=== PATIENT | male | born 1965 | race Caucasian/White ===

== ENCOUNTER 2016-10-17 19:10 | Observation (INO) | payer OTHER ==
[2016-10-17] MEDS ORDERED: Nitrostat 0.4 MG (ED) SL ONE (19:18)
[2016-10-17] MEDS ORDERED: Zofran 4 MG/2 ML VIAL IV ONE (19:18)
[2016-10-17] MEDS ORDERED: BABY ASPIRIN 81 MG CHEW PO ONE (19:18)
[2016-10-17] MEDS ORDERED: LOPRESSOR 5 MG/5 ML INJECTION IV ONE ×2 (19:18→19:32)
[2016-10-17] MEDS ORDERED: Zofran 4 MG/2 ML VIAL ONE (19:19)
[2016-10-17] MEDS ORDERED: Sodium Chloride 0.9% 1000 ML 1,000 ML ONE (19:19)
[2016-10-17] MEDS ORDERED: NITRO-BID 2% UD PACKETS ONE (19:19)
[2016-10-17] MEDS ORDERED: MORPHINE SULFATE 2 MG INJ IV ONE (19:27)
[2016-10-17 19:30] LABS: BASOPHIL % 0.5 % (0.0-0.4); Eosinophil % 2.2 % (0.00-5.0); Granulocytes % 63.6 % (36.0-66.0); Mean Corpuscular Hemoglobin 31.5 pg (26-32); Mean Platelet Volume 10.3 fl (6-9.5); Monocytes % 5.7 % (0.0-12.0); Platelet Count 207 K/mm3 (150-450); Red Cell Distribution Width 14.1 % (11.5-14.0); White Blood Count 11.7 K/mm3 (4.0-10.5)
[2016-10-17] MEDS ORDERED: Sodium Chloride 0.9% 1000 ML 1,000 ML IV SCH (19:30)
[2016-10-17] MEDS ORDERED: MORPHINE SULFATE 2 MG INJ ONE (19:32)
[2016-10-17 19:41] LABS: INR 1.02 (0.8-3.0); PROTIME 11.5 SECONDS (8.83-12.87)
--- NOTE | 2016-10-17 19:42 | ERPHSYRPT ---
- History of Present Illness Time Seen by Provider: 10/17/16 19:18 Historian: patient Exam Limitations: no limitations Physician History: onsert CP 1 week ago; intermittatnt; worse today since 1 pm; AMI x 3 in past with stents; last one 3 years ago; this simialr; pain 11/26; took asa and ntg; now ; some Nause; no ememsis; radiatews to neck and back; some SOB and sweats; continues to smoke Timing/Duration: today (worse), week(s) (1 onset), intermittent, worse Activities at Onset: activity Quality: pressure Location: central Chest Pain Radiation: neck, back Severity of Pain-Max: severe Severity of Pain-Current: moderate Modifying Factors: Improves With: exertion (aggravates), nitroglycerin (helps), rest (helps), aspirin (helps) Associated Symptoms: nausea, shortness of breath, diaphoresis Prior Chest Pain/Cardiac Workup: angina, cardiac cath, heart attack Nitro Today/Relief: 0.4 mg x 2 Aspirin Treatment Today: 81 mg x 1, provided by ED Allergies/Adverse Reactions: No Known Drug Allergies Allergy (Verified 11/21/15 07:20) Home Medications: Alprazolam 0.5 mg [xanAX 0.5 MG] 0.5 mg PO HS 09/14/12 [History] Nitroglycerin 0.4 mg Tablet [Nitrostat 0.4 MG Tablet] 0.4 mg SL UD [History] Pravastatin Sodium 40 mg PO HS 09/14/12 [History] Clopidogrel Bisulfate 75 mg [PLAVIX 75 MG Tablet] 75 mg PO DAILY 11/05/13 [History] Divalproex Sodium 500 mg PO BID 11/05/13 [History] Lisinopril/Hydrochlorothiazide [Lisinopril-Hctz 10-12.5 mg Tab] 10 mg PO DAILY 11/23/13 [History] Aspirin [Aspir-Low] 81 mg DAILY 11/21/15 [History] Bupropion HCl Xl 150 mg [Wellbutrin XL 150 MG] 150 mg BID 11/21/15 [ History] Levetiracetam [Keppra Xr] 500 mg PO BID 11/21/15 [History] Metoprolol Succinate 25 mg Xl* [Toprol-Xl 25MG Tablets] 25 mg PO DAILY [History] Ranitidine HCl [Zantac] 150 mg PO DAILY 11/21/15 [History] Ranolazine 500 MG [Ranexa 500 MG] 500 mg PO DAILY 11/21/15 [History] Simvastatin [Zocor] 10 mg PO DAILY 11/21/15 [History] Hx Tetanus, Diphtheria Vaccination/Date Given: No (UNKNOWN) Hx Influenza Vaccination/Date Given: No Hx Pneumococcal Vaccination/Date Given: No - Review of Systems Constitutional: No Symptoms Eyes: No Symptoms Ears, Nose, & Throat: No Symptoms Respiratory: No Cough, No Dyspnea, No Wheezing Cardiac: Chest Pain, No Palpitations, No Syncope Abdominal/Gastrointestinal: Nausea, No Abdominal Pain, No Vomiting, No Diarrhea Genitourinary Symptoms: No Symptoms Musculoskeletal: No Symptoms Skin: No Symptoms Neurological: No Symptoms Psychological: No Symptoms Endocrine: No Symptoms Hematologic/Lymphatic: No Symptoms Immunological/Allergic: No Symptoms - Past Medical History Pertinent Past Medical History: Yes Neurological History: Seizures ENT History: No Pertinent History Cardiac History: Angina, Coronary Artery Disease, High Cholesterol, Hypertension , Myocardial Infarction ([place]) Respiratory History: No Pertinent History Endocrine Medical History: No Pertinent History Musculoskeletal History: No Pertinent History GI Medical History: Diverticulitis, Other History: No Pertinent History Psycho-Social History: Anxiety Male Reproductive Disorders: No Pertinent History - Past Surgical History Past Surgical History: Yes Neuro Surgical History: No Pertinent History Cardiac: Cardiac Catheterization, Cardiac Stent Respiratory: No Pertinent History Gastrointestinal: Colon Resection Genitourinary: No Pertinent History Musculoskeletal: Orthopedic Surgery Male Surgical History: No Pertinent History Other Surgical History: pins in left arm, left knee surgery torn tendon repair, back surgery x2 lower back detioration, posterior neck "cage and screws around it" - Social History Smoking Status: Current every day smoker How long have you smoked: 40 Exposure to second hand smoke: Yes Alcohol Use: Socially Drug Use: none Patient Lives Alone: Yes Significant Family History: heart disease, hypertension - Nursing Vital Signs Nursing Vital Signs: Initial Vital Signs Temperature 98.2 F 10/17/16 19:25 Pulse Rate 68 10/17/16 19:25 Respiratory Rate 34 H 10/17/16 19:25 Blood Pressure 170/93 10/17/16 19:25 O2 Sat by Pulse Oximetry 98 10/17/16 19:25 Pain Scale Pain Intensity 7 - Physical Exam General Appearance: severe distress, alert, thin Eye Exam: PERRL/EOMI, eyes nml inspection, No photophobia Ears, Nose, Throat Exam: normal ENT inspection, TMs normal, pharynx normal, moist mucous membranes Neck Exam: normal inspection, non-tender, supple, full range of motion, No meningismus, No carotid bruit, No JVD Respiratory Exam: normal breath sounds, lungs clear, airway intact, No chest tenderness, No respiratory distress Cardiovascular Exam: regular rate/rhythm, normal heart sounds, normal peripheral pulses, capillary refill <2 sec, No murmur Gastrointestinal/Abdomen Exam: soft, normal bowel sounds, No tenderness, No mass , No guarding, No pulsatile mass, No rebound, No organomegaly Rectal Exam: deferred Back Exam: normal inspection, normal range of motion, No CVA tenderness, No vertebral tenderness Extremity Exam: normal inspection, normal range of motion, No june's sign, No pedal edema Neurologic Exam: alert, oriented x 3, cooperative, 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, normal mood/affect, nml cerebellar function, nml station & gait Skin Exam: normal color, warm, dry, No rash, No petechiae SpO2 Interpretation: normal SpO2: 96 Oxygen Delivery: Room Air - Course Nursing assessment & vital signs reviewed: Yes EKG Interpreted by Me: RATE (76), Sinus Rhythm, NORMAL AXIS, NORMAL INTERVALS, NORMAL QRS, NORMAL ST-T, Other (no change from8-5-13) Rhythm Strip: Rate (76), Normal Sinus Rhythm - Radiology Exams Chest X-ray Interpretation: Interpreted by me, Negative, No Pneumonia, No Pneumothorax , Nml Heart Size, No Infiltrates Ordered Tests: Active Orders 24 hr Category Date Time Status Bedrest with BRP/BSC ROUTINE Activity 10/17/16 20:33 Ordered Admission/Status Order ROUTINE Care 10/17/16 20:33 Ordered Call Admit Doctor for Orders ROUTINE Care 10/17/16 20:32 Ordered Director Specialty STAT Care 10/17/16 19:19 Active Code Status Order ROUTINE Care 10/17/16 20:33 Ordered EKG-ER Only STAT Care 10/17/16 19:18 Active IV Care Q6H Care 10/17/16 20:33 Ordered IV Insertion STAT Care 10/17/16 19:18 Active Implement Chest Pain Pathway ROUTINE Care 10/17/16 20:33 Ordered Oxygen-ED Only NASAL CANNULA 2 lpm Care 10/17/16 19:18 Active Pulse Oximetry (ED) STAT Care 10/17/16 19:18 Active Re-Check Vital Signs STAT Care 10/17/16 19:18 Active Dhruv Valentin, Apply ROUTINE Care 10/17/16 20:33 Ordered Telemetry ROUTINE Care 10/17/16 20:33 Ordered Weight,Daily 0600 Care 10/17/16 20:33 Ordered Cardiac Diet Diet 10/17/16 Breakfast Ordered CHEST 1 VIEW (PORTABLE) Stat Exams 10/17/16 19:19 Taken CBC W DIFF Stat Lab 10/17/16 19:20 Completed CMP Stat Lab 10/17/16 19:20 Completed LIPID PROFILE AM.LAB Lab 10/18/16 04:00 Ordered NT PRO BNP Stat Lab 10/17/16 19:20 Completed PROTIME WITH INR Stat Lab 10/17/16 19:20 Completed TROPONIN Q3H Lab 10/17/16 19:20 Received TROPONIN Q3H Lab 10/17/16 20:00 Completed TROPONIN Q3H Lab 10/18/16 01:30 Ordered TROPONIN Q3H Lab 10/18/16 04:30 Ordered TROPONIN Q3H Lab 10/18/16 07:30 Ordered EKG Q8HX2,QAMX3,PRN RT 10/17/16 20:33 Ordered Pulse Oximetry Q4H RT 10/17/16 20:33 Ordered Transfer Order Routine Transfer 10/17/16 Ordered Medication Summary Generic Name Dose Route Start Last Admin Trade Name Freq PRN Reason Stop Dose Admin Sodium Chloride 1,000 mls @ 50 mls/hr 10/17/16 19:30 10/17/16 19:31 Sodium Chloride 0.9% 1000 Ml IV 11/16/16 19:29 50 mls/hr .Q20H MANSI Administration Discontinued Medications Generic Name Dose Route Start Last Admin Trade Name Freq PRN Reason Stop Dose Admin Aspirin 324 mg 10/17/16 19:18 10/17/16 19:30 Baby Aspirin 81 Mg Chew PO 10/17/16 19:19 324 mg STAT ONE Administration Metoprolol Tartrate 5 mg 10/17/16 19:18 10/17/16 19:51 Lopressor 5 Mg/5 Ml Injection IV 10/17/16 19:19 1 mg STAT ONE Administration Metoprolol Tartrate Confirm 10/17/16 19:32 Lopressor 5 Mg/5 Ml Injection Administered 10/17/16 19:33 Dose 5 mg IV .STK-MED ONE Morphine Sulfate 2 mg 10/17/16 19:27 10/17/16 19:50 Morphine Sulfate 2 Mg Inj IV 10/17/16 19:28 2 mg STAT ONE Administration Morphine Sulfate Confirm 10/17/16 19:32 Morphine Sulfate 2 Mg Inj Administered 10/17/16 19:33 Dose 2 mg .ROUTE .STK-MED ONE Morphine Sulfate 4 mg 10/17/16 20:02 10/17/16 20:11 Morphine Sulfate 4 Mg Inj IV 10/17/16 20:03 4 mg STAT ONE Administration Morphine Sulfate Confirm 10/17/16 20:05 Morphine Sulfate 4 Mg Inj Administered 10/17/16 20:06 Dose 4 mg .ROUTE .STK-MED ONE Nitroglycerin 0.4 mg 10/17/16 19:18 10/17/16 20:00 Nitrostat 0.4 Mg (Ed) SL 10/17/16 19:19 Not Given STAT ONE Nitroglycerin Confirm 10/17/16 19:19 Nitro-Bid 2% Ud Packets Administered 10/17/16 19:20 Dose 1 gm .ROUTE .STK-MED ONE Nitroglycerin 1 gm 10/17/16 19:58 10/17/16 20:12 Nitro-Bid 2% Ud Packets TOP 10/17/16 19:59 1 gm STAT ONE Administration Ondansetron HCl 4 mg 10/17/16 19:18 10/17/16 19:31 Zofran 4 Mg/2 Ml Vial IV 10/17/16 19:19 4 mg STAT ONE Administration Ondansetron HCl Confirm 10/17/16 19:19 Zofran 4 Mg/2 Ml Vial Administered 10/17/16 19:20 Dose 4 mg .ROUTE .STK-MED ONE Lab/Rad Data: Laboratory Result Diagrams 10/17/16 19:20 10/17/16 19:20 Laboratory Results 10/17/16 10/17/16 10/17/16 Range/Units 20:00 19:20 19:20 WBC (4.0-10.5) K/mm3 RBC (4.1-5.6) M/mm3 Hgb (12.5-18.0) gm/dl Hct (42-50) % MCV (78-100) fl MCH (26-32) pg MCHC (32-36) g/dl RDW (11.5-14.0) % Plt Count (150-450) K/mm3 MPV (6-9.5) fl Gran % (36.0-66.0) % Lymphocytes % (24.0-44.0) % Monocytes % (0.0-12.0) % Eosinophils % (0.00-5.0) % Basophils % (0.0-0.4) % Basophils # (0-0.4) INR 1.02 (0.8-3.0) Sodium 140 (136-145) mEq/L Potassium 3.8 (3.5-5.1) mEq/L Chloride 104 (98-107) mEq/L Carbon Dioxide 26.9 (21-32) mEq/L Anion Gap 13.2 (5-15) MEQ/L BUN 13 (9-20) mg/dL Creatinine 0.87 (0.55-1.30) mg/dl Estimated GFR > 60 ML/MIN Glucose 96 (70-110) MG/DL Calcium 9.4 (8.5-10.1) mg/dL Total Bilirubin 0.30 (0.2-1.0) mg/dL AST 20 (15-37) U/L ALT 38 (12-78) U/L Alkaline Phosphatase 87 (46-116) U/L Troponin I < 0.017 (0.000-0.056) ng/ml NT-Pro-B Natriuret Pep 150 H (0-125) pg/ml Serum Total Protein 7.5 (6.4-8.2) gm/dL Albumin 3.9 (3.4-5.0) g/dL 10/17/16 Range/Units 19:20 WBC 11.7 H (4.0-10.5) K/mm3 RBC 5.50 (4.1-5.6) M/mm3 Hgb 17.3 (12.5-18.0) gm/dl Hct 50.6 H (42-50) % MCV 92.0 (78-100) fl MCH 31.5 (26-32) pg MCHC 34.2 (32-36) g/dl RDW 14.1 H (11.5-14.0) % Plt Count 207 (150-450) K/mm3 MPV 10.3 H (6-9.5) fl Gran % 63.6 (36.0-66.0) % Lymphocytes % 28.0 (24.0-44.0) % Monocytes % 5.7 (0.0-12.0) % Eosinophils % 2.2 (0.00-5.0) % Basophils % 0.5 (0.0-0.4) % Basophils # 0.06 (0-0.4) INR (0.8-3.0) Sodium (136-145) mEq/L Potassium (3.5-5.1) mEq/L Chloride (98-107) mEq/L Carbon Dioxide (21-32) mEq/L Anion Gap (5-15) MEQ/L BUN (9-20) mg/dL Creatinine (0.55-1.30) mg/dl Estimated GFR ML/MIN Glucose (70-110) MG/DL Calcium (8.5-10.1) mg/dL Total Bilirubin (0.2-1.0) mg/dL AST (15-37) U/L ALT (12-78) U/L Alkaline Phosphatase (46-116) U/L Troponin I (0.000-0.056) ng/ml NT-Pro-B Natriuret Pep (0-125) pg/ml Serum Total Protein (6.4-8.2) gm/dL Albumin (3.4-5.0) g/dL reviewed - Progress Progress: improved (after meds), re-examined (after emds) Air Movement: good Progress Note: 10/17/16 19:42 , ekg ok; cxr and labs pending; will medicate and recheck 10/17/16 19:50 pain improved and BP improved after meds; cxr ok; labs pending 10/17/16 20:03 pain imcreasing; will medicate and recheck; at bedside; otherwise no change ; will monitor and recheck 10/17/16 20:23 patient continues to improve; VS improved; pain improved; at bedside; discussed results and admission and will consult LMD for disposition 10/17/16 20:36 Dr Soto consulted and will admit and have cardiology see in am. Patient and family notified and concur Blood Culture(s) Obtained: No Antibiotics given: No Discussed with : Charles (notified and will admit) Will see patient in: hospital (observation) Counseled pt/family regarding: lab results, diagnosis, need for follow-up, rad results, smoking cessation - Departure Time of Disposition: 20:37 Departure Disposition: Observation Clinical Impression: Chest pain at rest, Hypertension Condition: Serious Critical Care Time: Yes Critical Care Time(excluding separately billable procedures): 30-74 minutes Referrals: LUIS SOTO [Primary Care Provider] -
[2016-10-17] MEDS ORDERED: NITRO-BID 2% UD PACKETS TOP ONE (19:58)
[2016-10-17] MEDS ORDERED: MORPHINE SULFATE 4 MG INJ IV ONE (20:02)
[2016-10-17] MEDS ORDERED: MORPHINE SULFATE 4 MG INJ ONE (20:05)
[2016-10-17 20:19] LABS: ALBUMIN 3.9 g/dL (3.4-5.0); ALKALINE PHOSPHATASE 87 U/L (46-116); ANION GAP 13.2 MEQ/L (5-15); BLOOD UREA NITROGEN 13 mg/dL (9-20); CHLORIDE 104 mEq/L (98-107); Carbon Dioxide 26.9 mEq/L (21-32); Glucose 96 MG/DL (70-110); Potassium 3.8 mEq/L (3.5-5.1); SGOT/AST 20 U/L (15-37); SGPT/ALT 38 U/L (12-78); SODIUM 140 mEq/L (136-145); Total Protein 7.5 gm/dL (6.4-8.2)
[2016-10-17] MEDS ORDERED: Zofran 4 MG/2 ML VIAL IV PRN (20:32)
[2016-10-17] MEDS ORDERED: Senokot-S Tablet PO PRN (20:32)
[2016-10-17] MEDS ORDERED: TYLENOL 325 MG PO PRN (20:32)
[2016-10-17] MEDS ORDERED: MAALOX ES 30 ML UNIT DOSE PO PRN (20:32)
[2016-10-17] MEDS ORDERED: MILK OF MAGNESIA 30 ML PO PRN (20:32)
[2016-10-17] MEDS: MORPHINE SULFATE 2 MG INJ IV PRN (22:51)
[2016-10-18] MEDS: Pepcid 20 MG PO SCH ×2 (00:39→10:04)
[2016-10-18] MEDS: Ranexa 500 MG PO SCH ×2 (00:39→10:05)
[2016-10-18] MEDS: KEPPRA 500 MG PO SCH ×2 (00:40→10:04)
[2016-10-18] MEDS: NITRO-BID 2% UD PACKETS TOP SCH ×3 (01:05→14:03)
[2016-10-18] MEDS: Sodium Chloride 0.9% 500 ML 500 ML IV SCH ×2 (01:08→06:24)
[2016-10-18] MEDS ORDERED: NITRO-BID 2% UD PACKETS ONE (06:30)
[2016-10-18] MEDS ORDERED: MORPHINE SULFATE 2 MG INJ ONE (06:30)
[2016-10-18] MEDS: MORPHINE SULFATE 2 MG INJ IV PRN (06:32)
--- NOTE | 2016-10-18 07:18 | PCM.HP ---
History of Present Illness - Chief Complaint Chief Complaint: chest pain r/o History of Present Illness: is a 51 year old male pt of mine from [facility], known CAD, who came in to ER yesterday c/o chest pain. He had been seen in the office earlier this week where he had symptoms of unstable angina. I advised him to limit his activities until he followed up with Dr. Vargas today. Yesterday his chickens were out of water so he carried 7 gallons of water (at one time) then he started having chest pain, felt it was between his L chest and his back, accompanied by tachycardia, nausea, diaphoresis, and shortness of breath. troponins have been negative. - Review of Systems Ears, Nose, & Throat: Throat Swelling Cardiac: Chest Pain, Edema (slight in LE last night), Palpitations Abdominal/Gastrointestinal: Nausea Musculoskeletal: Arthralgias, Back Pain Skin: Other (diaphoresis) Psychological: Anxiety All Other Systems: Reviewed and Negative Medications & Allergies Home Medications: Home Medication List Alprazolam 0.5 mg [xanAX 0.5 MG] 0.5 mg PO BID PRN 09/14/12 [History Confirmed 10/17/16] Nitroglycerin 0.4 mg Tablet [Nitrostat 0.4 MG Tablet] 0.4 mg SL UD [History Confirmed 10/17/16] Pravastatin Sodium 40 mg PO DAILY 09/14/12 [History Confirmed 10/17/16] Clopidogrel Bisulfate 75 mg [PLAVIX 75 MG Tablet] 75 mg PO DAILY 11/05/13 [History Confirmed 10/17/16] Aspirin [Aspir-Low] 81 mg DAILY 11/21/15 [History Confirmed 10/17/16] Metoprolol Succinate 25 mg Xl* [Toprol-Xl 25MG Tablets] 25 mg PO BID [History Confirmed 10/17/16] Ranitidine HCl [Zantac] 150 mg PO BID 11/21/15 [History Confirmed 10/17/16] Ranolazine 500 MG [Ranexa 500 MG] 500 mg PO BID 11/21/15 [History Confirmed 10/17/16] Atorvastatin Calcium [Lipitor] 10 mg PO DAILY 10/17/16 [History Confirmed ] Hydrochlorothiazide 12.5 mg PO DAILY 10/17/16 [History Confirmed 10/17/16] Levetiracetam [Keppra 500 mg ] 500 mg PO BID 10/17/16 [History Confirmed 10/17/16] Lisinopril 10 mg [Zestril 10 MG] 10 mg PO DAILY 10/17/16 [History Confirmed 10/17/16] Allergies/Adverse Reactions: Allergies Allergy/AdvReac Type Severity Reaction Status Date / Time No Known Drug Allergies Allergy Verified 10/17/16 21:14 - Past Medical History Past Medical History: Yes Neurological History: Seizures ENT History: No Pertinent History Cardiac History: Angina, Coronary Artery Disease, High Cholesterol, Hypertension , Myocardial Infarction ([place]) Respiratory History: No Pertinent History Endocrine Medical History: No Pertinent History Musculoskelatal History: No Pertinent History GI Medical History: Diverticulitis, Other History: No Pertinent History Pyscho-Social History: Anxiety Male Reproductive Disorders: No Pertinent History - Past Surgical History Past Surgical History: Yes Neuro Surgical History: No Pertinent History Cardiac History: Cardiac Catheterization, Cardiac Stent Respiratory Surgery: No Pertinent History GI Surgical History: Colon Resection Genitourinary Surgical Hx: No Pertinent History Musculskeletal Surgical Hx: Orthopedic Surgery Male Surgical History: No Pertinent History Other Surgical History: pins in left arm, left knee surgery torn tendon repair, back surgery x2 lower back deterioration, posterior neck "cage and screws around it" - Social History Smoking Status: Current every day smoker How long have you smoked: 30 YEARS Exposure to second hand smoke: Yes Alcohol: None Drug Use: none Significant Family History: heart disease, hypertension - Physical Exam Vital Signs: Vital Signs - 24 hr Temp Pulse Pulse Resp BP Pulse Ox 10/18/16 06:44 93 L 10/18/16 04:00 96 10/18/16 03:58 97.8 F 59 L 19 130/75 93 L 10/18/16 03:31 94 L 10/18/16 00:00 97.7 F 54 L 20 158/97 95 10/17/16 21:44 97.9 F 55 L 22 188/86 95 10/17/16 21:00 51 L 15 131/87 97 10/17/16 20:45 57 L 14 135/85 98 10/17/16 20:38 96 10/17/16 20:30 60 12 140/91 98 10/17/16 20:18 96 10/17/16 20:15 59 L 14 150/96 99 10/17/16 20:00 61 19 165/93 99 10/17/16 19:48 57 L 18 166/106 96 10/17/16 19:40 61 28 H 162/95 91 L 10/17/16 19:25 98.2 F 70 68 34 H 170/93 98 Oxygen-Last 24 hours O2 Percentage 2 Liters = 28% O2 Percentage 2 Liters = 28% O2 Percentage 2 Liters = 28% O2 Percentage 2 Liters = 28% O2 Percentage 2 Liters = 28% O2 Percentage 2 Liters = 28% O2 Percentage 2 Liters = 28% General Appearance: no apparent distress Neurologic Exam: alert, oriented x 3, cooperative Eye Exam: eyes nml inspection Ears, Nose, Throat Exam: moist mucous membranes Neck Exam: non-tender, thyromegaly (L>R), No lymphadenopathy Respiratory Exam: crackles/rales (RLL), other (good air exchange), No rhonchi, No wheezing Cardiovascular Exam: regular rate/rhythm, normal heart sounds, No murmur Gastrointestinal/Abdomen Exam: soft, normal bowel sounds, No tenderness, No distention, No mass, No guarding, No rebound Back Exam: normal inspection Extremity Exam: No pedal edema, No swelling Skin Exam: normal color, warm, dry Results - Labs Lab/Micro Results: Lab Results-Last 24 Hours 10/17/16 10/18/16 10/18/16 Range/Units 22:25 01:35 04:20 Troponin I < 0.017 < 0.017 < 0.017 (0.000-0.056) ng/ml - Other Procedures and Tests Respiratory Therapy 10/18/16 03:19 Oxygen NASAL CANNULA 2 lpm 10/19/16 05:00 EKG ROUTINE 10/20/16 05:00 EKG ROUTINE 10/21/16 05:00 EKG ROUTINE Assessment/Plan (1) Chest pain at rest Current Visit: Yes Status: Acute Assessment & Plan: Will rule out OR with serial troponins. I will let Dr. Vargas know he is here. Code(s): R07.9 - CHEST PAIN, UNSPECIFIED (2) Hypertension Current Visit: Yes Status: Acute Qualifiers: Hypertension type: essential hypertension Qualified Code(s): I10 - Essential (primary) hypertension Assessment & Plan: Has been well controlled on meds, but very high at admission (>200 systolic). Code(s): I10 - ESSENTIAL (PRIMARY) HYPERTENSION (3) Thyromegaly Current Visit: Yes Status: Acute Assessment & Plan: Will u/s neck; outpatient is fine. Code(s): E01.0 - IODINE-DEFICIENCY RELATED DIFFUSE (ENDEMIC) GOITER
--- NOTE | 2016-10-18 09:15 | XRAY ---
Indication: Chest pain and short of breath. Comparison: March 25, 2014. Portable chest less inflated today with new left midlung discoid atelectasis/scarring. There remains a few calcified granulomas. Remaining lungs clear. Heart is not enlarged. Bony thorax intact again with mild degenerative changes and punctate foreign body overlying the left lower chest. Impression: Nonacute underinflated chest with chronic features.
[2016-10-18] MEDS ORDERED: xanAX 0.5 MG PO PRN (09:30)
[2016-10-18] MEDS ORDERED: Nitrostat 0.4 MG Tablet SL PRN (09:30)
[2016-10-18 09:41] LABS: Cholesterol 148 mg/dL (100-200); LDL, DIRECT 96 mg/dL (5-99); TRIGLYCERIDE 134 mg/dL (30-200)
[2016-10-18 09:42] LABS: TROPONIN < 0.017 ng/ml (0.000-0.056)
[2016-10-18] MEDS ORDERED: PLAVIX 75 MG Tablet PO SCH (10:00)
[2016-10-18] MEDS ORDERED: ENOXAPARIN SODIUM SQ SCH (10:00)
[2016-10-18] MEDS ORDERED: Toprol-Xl 25MG Tablets PO SCH (10:00)
[2016-10-18] MEDS ORDERED: Zestril 10 MG PO SCH (10:00)
[2016-10-18] MEDS ORDERED: ECOTRIN 81 MG PO SCH (10:00)
[2016-10-18] MEDS ORDERED: NON-FORMULARY ITEM (Atorvastatin Calcium [Lipitor] 10 MG) PO SCH (10:00)
[2016-10-18] MEDS ORDERED: NON-FORMULARY ITEM (Hydrochlorothiazide [Hydrochlorothiazide] 12.5 MG) PO SCH (10:00)
[2016-10-18] MEDS ORDERED: hydroDIURIL 25 MG PO SCH (10:00)
[2016-10-18] MEDS ORDERED: Ecotrin 325 MG PO SCH (10:00)
[2016-10-18 11:46] VITALS: BP 127/68; PULSE 51; O2SAT 98
[2016-10-18] MEDS ORDERED: Zocor 10MG PO SCH (22:00)
== END 2016-10-18 16:10 | disposition home or self-care (01) ==
LOC: ED 19:10 → MED SURG 21:40
PROVIDERS: ADMIT Family Medicine; ATTEND Family Medicine
DX: R07.9 Chest pain, unspecified (principal); I10 Essential (primary) hypertension; E01.0 Iodine-deficiency related diffuse (endemic) goiter; Z79.899 Other long term (current) drug therapy; G40.909 Epilepsy, unspecified, not intractable, without status epilepticus; I25.10 Atherosclerotic heart disease of native coronary artery without angina pectoris; I25.2 Old myocardial infarction
CPT/HCPCS: 36000; 36415; 71010; 80053; 80061; 83721; 83880; 84443; 84484; 85025; 85610; 93005; 93041; 93268; 94760; 96360; 96361; 99285; G0378; J1650; J2270; J2405; A9270-GY

== ENCOUNTER 2016-11-29 05:45 | Day surgery (SDC) | payer OTHER ==
[2016-11-29] MEDS ORDERED: Versed 2 MG/2 ML Injection IV ONE (05:46)
[2016-11-29] MEDS ORDERED: DIPRIVAN 200 MG/20 ML IV ONE (05:46)
[2016-11-29] MEDS ORDERED: Lactated Ringers 1,000 ML IV SCH (06:00)
--- NOTE | 2016-11-29 08:05 | OP ---
SURGERY DATE/TIME: 11/29/2016 0655 PREOPERATIVE DIAGNOSES: 1) Hematemesis. 2) Abdominal pain. POSTOPERATIVE DIAGNOSES: 1) Moderate gastritis. 2) Moderate duodenitis. 3) Normal colon. PROCEDURES: 1) Esophagogastroduodenoscopy with biopsy. 2) Colonoscopy. SURGEON: Dr. Zarco. ANESTHESIA: Medications were given by the anesthesia department. BRIEF HISTORY: The patient is a 51 year old white male patient presenting now with complaints of hematemesis. There was noted to be blood in the stool as well. The patient was felt the need to have endoscopic evaluation. He was appraised of the risks of the procedure including the risk of perforation, phlebitis, untoward reaction to medication, bleeding and missed lesions. The patient verbalized his understanding and desired to have the procedure performed. DESCRIPTION OF PROCEDURE: The patient was given the medications by the anesthesia department. He had continuous pulse oximetry, ECG monitoring, intermittent blood pressure monitoring and tidal CO2 monitoring during the examination. He was placed in the left lateral decubitus position. A bite block was placed. The flexible Olympus gastroscope was used to intubate the oropharynx. A view of the larynx was obtained and was normal. The scope was passed in the esophagus which appeared to be normal throughout its length. The stomach was entered where normal gastric rugal folds were seen and these distended nicely with insufflation of air. There was noted to be generalized erythema and punctate erosions noted throughout the stomach. The pylorus was encountered and intubated. Duodenum was also likewise erythematous with erosions noted. No deep ulcerations however were noted and no active bleeding was present. The duodenum was inspected. The scope was then withdrawn back towards the stomach. A retroflex view was obtained of lesser curvature, fundus and cardia regions of the stomach and appeared to be normal. The scope was then redirected towards the gastric antrum and biopsies were obtained to rule out the presence of Helicobacter pylori-type organisms. The scope was then removed from the patient. Next, a digital rectal exam was performed and revealed normal anal sphincter tone and no masses and normal prostate. The flexible Olympus pediatric colonoscope was used to intubate the rectum. A view of the colon was developed sequentially to the cecum including a short distance in the terminal ileum. Upon insertion and withdrawal, including a retroflex view in the rectum, no mucosal lesions were encountered. The scope was removed from the patient who tolerated the procedure well and was sent back to OP recovery in good condition. The prep was noted to be fair to poor with large amounts of frothy stool left in the colon. We did use simethicone and flushed vigorously to obtain views of the colon. We felt it was adequate for not missing any significant polyps or colitis.
[2016-11-29 08:23] VITALS: BP 141/65; PULSE 61; O2SAT 98
== END 2016-11-29 08:29 | disposition home or self-care (01) ==
LOC: SDC 05:45
PROVIDERS: ATTEND Family Medicine
PROC: 0DB68ZX Excision of Stomach, Via Natural or Artificial Opening Endoscopic, Diagnostic (ICD-10-PCS; principal; 2016-11-29)
PROC: 0DJD8ZZ Inspection of Lower Intestinal Tract, Via Natural or Artificial Opening Endoscopic (ICD-10-PCS; 2016-11-29)
DX: K29.70 Gastritis, unspecified, without bleeding (principal); K29.80 Duodenitis without bleeding; K92.1 Melena
CPT/HCPCS: 00740; 00810; 36415; 88305; J2250; J2704

== ENCOUNTER 2018-11-13 05:45 | Day surgery (SDC) | payer OTHER ==
[2018-11-13] MEDS ORDERED: Lactated Ringers 1,000 ML IV SCH (06:30)
[2018-11-13] MEDS ORDERED: DIPRIVAN 200 MG/20 ML IV ONE ×2 (07:56→08:18)
[2018-11-13] MEDS ORDERED: Ketamine HCl 50 MG/ML ONE (07:57)
[2018-11-13] MEDS ORDERED: Lactated Ringers 1,000 ML IV ONE (08:22)
[2018-11-13 09:11] VITALS: PULSE 60
[2018-11-13 09:34] VITALS: BP 128/69
[2018-11-13 09:35] VITALS: O2SAT 100
--- NOTE | 2018-11-13 10:21 | OP ---
SURGERY DATE/TIME: 11/13/2018 0805 PREOPERATIVE DIAGNOSIS: Abdominal pain and 40 pound weight loss, previous history of partial colon resection for diverticular disease. POSTOPERATIVE DIAGNOSIS: Moderate to severe gastritis and normal colon, status post partial sigmoidectomy. PROCEDURES: 1) EGD. 2) Colonoscopy. SURGEON: Dr. Zarco. ANESTHESIA: MAC. Medications given by anesthesia department. HISTORY: The patient is a 53 year-old white male patient presenting now for endoscopic evaluation. He reports he has been having problems with abdominal pain for the past few months and he reports approximately 40 pound weight loss in the past two months. The patient also reports previously having similar problems approximately three years ago and was seen in [place] and scoped by Dr. Kauffman after which Dr. Kauffman suggested he go to [place] for further evaluation but the patient declined. The patient currently does take aspirin regimen for regular medication. The patient was suggested to have endoscopic evaluation. He was appraised of the risks of the procedure including the risk of perforation, phlebitis, untoward reaction to medication, bleeding and missed lesions. The patient verbalized his understanding and desired to have the procedure performed. DESCRIPTION OF PROCEDURE: The patient was given the medications by the anesthesia department. He had continuous pulse oximetry, ECG monitoring, intermittent blood pressure monitoring and tidal CO2 monitoring during the examination. He was placed in the left lateral decubitus position. A bite block was placed and the flexible Olympus gastroscope was used to intubate the oropharynx. A view of the larynx was obtained and was normal. The scope was easily introduced in the esophagus which was normal throughout its length. The stomach was entered where normal gastric rugal folds were seen and these distended nicely with insufflation of air. The scope was passed along the greater curvature of the stomach to the antrum which appeared to have moderate to severe gastritis with small areas of punctate hemorrhage. He was also noted to have a normal appearing pylorus which was intubated. The duodenum inspected and found to be essentially normal. The scope is withdrawn towards the stomach. A retroflex view was obtained of the lesser curvature, fundus and cardia regions of the stomach and these appeared to be normal. Biopsies were then obtained from the gastric antrum to rule out the presence of Helicobacter pylori type organisms and confirm the presence of gastritis. The scope was removed from the patient. Next, a digital rectal examination was performed and revealed normal anal sphincter tone and no masses. The flexible Olympus pediatric colonoscope was used to intubate the rectum. A view of the colon was developed sequentially to the cecum including a short distance into the terminal ileum. Upon insertion and withdrawal, including a retroflex view in the rectum, no mucosal lesions were encountered. The scope was removed from the patient who tolerated the procedure well and was sent back to OP recovery in good condition. The prep was noted to be fair.
== END 2018-11-13 09:30 | disposition home or self-care (01) ==
LOC: SDC 05:45
PROVIDERS: ATTEND Family Medicine
DX: K29.70 Gastritis, unspecified, without bleeding (principal); R10.9 Unspecified abdominal pain; R63.4 Abnormal weight loss; Z87.19 Personal history of other diseases of the digestive system
CPT/HCPCS: 88305; J2704

== ENCOUNTER 2020-03-31 16:14 | Emergency (ER) | payer OTHER ==
--- NOTE | 2020-03-31 16:15 | ERPHSYRPT ---
- History of Present Illness Time Seen by Provider: 03/31/20 16:15 Source: patient Exam Limitations: no limitations Physician History: This is a 54-year-old right-handed white male who suffered an accidental laceration to his right thumb. It occurred approximately 2 PM this afternoon when an accident with a log splitter. Patient received a tetanus injection 3 years ago. He has no known drug allergies. He does have known coronary artery disease and has cardiac and stent in place and is on Plavix. He currently denies shortness of breath and denies chest pain. Occurred: this afternoon Method of Injury: other (Log splitter injury) Severity of Pain-Max: moderate Severity of Pain-Current: moderate Extremities Pain Location: thumb: right Modifying Factors: Improves With: movement (Hurts) Associated Symptoms: none Allergies/Adverse Reactions: No Known Drug Allergies Allergy (Verified 03/31/20 16:39) Home Medications: Alprazolam 0.5 mg [xanAX 0.5 MG] 0.5 mg PO BID 09/14/12 [History] Nitroglycerin 0.4 mg Tablet [Nitrostat 0.4 MG Tablet] 0.4 mg SL UD 09/14/12 [History] Clopidogrel Bisulfate 75 mg [PLAVIX 75 MG Tablet] 75 mg PO DAILY 11/05/13 [History] Metoprolol Succinate 25 mg Xl* [Toprol-Xl 25MG Tablets] 50 mg PO BID 11/21/15 [History] Ranitidine HCl [Zantac] 150 mg PO BID 11/21/15 [History] Ranolazine 500 MG [Ranexa 500 MG] 500 mg PO BID 11/21/15 [History] Levetiracetam [Keppra 500 mg ] 500 mg PO BID 10/17/16 [History] Amlodipine Besylate 5 mg [Norvasc 5 mg] 2.5 mg PO DAILY 11/09/18 [History] Atorvastatin Calcium 20 mg PO DAILY 11/09/18 [History] Lisinopril/Hydrochlorothiazide [Lisinopril-Hctz 10-12.5 mg Tab] 1 each PO DAILY 11/09/18 [History] Alprazolam 0.25 mg [xanAX 0.25 MG] 1 tab PO BID 12/04/18 [History] Hx Tetanus, Diphtheria Vaccination/Date Given: No (UNKNOWN) Hx Influenza Vaccination/Date Given: No Hx Pneumococcal Vaccination/Date Given: No Travel Risk - International Travel Have you traveled outside of the country in past 3 weeks: No - Coronavirus Screening Are you exhibiting any of the following symptoms?: No Close contact with a COVID-19 positive Pt in past 14-21 Days: No - Review of Systems Constitutional: No Symptoms Eyes: No Symptoms Ears, Nose, & Throat: No Symptoms Respiratory: No Symptoms Cardiac: No Symptoms Abdominal/Gastrointestinal: No Symptoms Genitourinary Symptoms: No Symptoms Musculoskeletal: Injury (Right thumb crush injury) Skin: Other (See above) Psychological: No Symptoms Endocrine: No Symptoms Hematologic/Lymphatic: No Symptoms Immunological/Allergic: No Symptoms All Other Systems: Reviewed and Negative - Past Medical History Pertinent Past Medical History: Yes Neurological History: Seizures ENT History: No Pertinent History Cardiac History: Angina, Coronary Artery Disease, High Cholesterol, Hypertension, Myocardial Infarction ([place]) Respiratory History: No Pertinent History Endocrine Medical History: No Pertinent History Musculoskeletal History: No Pertinent History GI Medical History: Diverticulitis, Other History: No Pertinent History Psycho-Social History: Anxiety Male Reproductive Disorders: No Pertinent History - Past Surgical History Past Surgical History: Yes Neuro Surgical History: No Pertinent History Cardiac: Cardiac Catheterization, Cardiac Stent Respiratory: No Pertinent History Gastrointestinal: Cholecystectomy, Colon Resection Genitourinary: No Pertinent History Musculoskeletal: Orthopedic Surgery Male Surgical History: No Pertinent History Other Surgical History: pins in left arm, left knee surgery torn tendon repair, back surgery x2 lower back deterioration, posterior neck "cage and screws around it"colon resection r/t diverticuli,ostomy placed and. ostomy reversal - Social History Smoking Status: Current every day smoker How long have you smoked: 30 YEARS Exposure to second hand smoke: Yes Alcohol Use: Socially Drug Use: none Patient Lives Alone: Yes Significant Family History: heart disease, hypertension - Nursing Vital Signs Nursing Vital Signs: Initial Vital Signs Temperature 98.1 F 03/31/20 16:29 Pulse Rate 68 03/31/20 16:29 Respiratory Rate 18 03/31/20 16:29 Blood Pressure 174/86 03/31/20 16:29 O2 Sat by Pulse Oximetry 97 03/31/20 16:29 Pain Scale Pain Intensity 7 - Physical Exam General Appearance: no apparent distress, alert, anxiety Eyes, Ears, Nose, Throat Exam: normal ENT inspection, moist mucous membranes Neck Exam: normal inspection, non-tender, supple, full range of motion Cardiovascular/Respiratory Exam: chest non-tender, normal breath sounds, regular rate/rhythm, heart sounds normal, no respiratory distress Abdominal Exam: non-tender Back Exam: normal inspection, normal range of motion, No CVA tenderness, No vertebral tenderness Shoulder Exam: normal inspection, non-tender, no evidence of injury, normal ROM Elbow/Forearm Exam: normal inspection, non-tender, no evidence of injury, normal ROM Wrist Exam: normal inspection, non-tender, no evidence of injury, normal ROM Hand Exam: bone tenderness, deformity (Right thumb), laceration, soft tissue tenderness, swelling Neuro/Tendon Exam: normal sensation, normal motor functions, normal tendon functions Mental Status Exam: alert, oriented x 3, cooperative Skin Exam: laceration, other (Swelling) SpO2 Interpretation: normal O2 Delivery: Room Air - Course Nursing assessment & vital signs reviewed: Yes Ordered Tests: Active Orders 24 hr Category Date Time Status IV Insertion STAT Care 03/31/20 16:57 Active HAND (MINIMUM 3 VIEWS) Stat Exams 03/31/20 16:38 Completed CBC W DIFF Stat Lab 03/31/20 16:44 Completed CMP Stat Lab 03/31/20 16:30 Completed PROTIME WITH INR Stat Lab 03/31/20 16:44 Completed Medication Summary Discontinued Medications Generic Name Dose Route Start Last Admin Trade Name Freq PRN Reason Stop Dose Admin Cefazolin Sodium/Dextrose 1 gm in 50 mls @ 100 mls/hr 03/31/20 16:44 03/31/20 16:53 Kefzol 1 Gm/50 Ml Premix IV 03/31/20 17:13 100 ml/hr STAT STA 100 mls/hr Administration Cefazolin Sodium/Dextrose Confirm 03/31/20 16:49 Kefzol 1 Gm/50 Ml Premix Administered 03/31/20 16:50 Dose 1 gm in 50 mls @ ud IV .STK-MED ONE Morphine Sulfate 4 mg 03/31/20 16:44 03/31/20 16:53 Morphine Sulfate 4 Mg Inj IV 03/31/20 16:45 4 mg STAT ONE Administration Morphine Sulfate Confirm 03/31/20 16:49 Morphine Sulfate 4 Mg Inj Administered 03/31/20 16:50 Dose 4 mg .ROUTE .STK-MED ONE Morphine Sulfate 4 mg 03/31/20 17:25 Morphine Sulfate 4 Mg Inj IV 03/31/20 17:26 STAT ONE Ondansetron HCl 4 mg 03/31/20 16:44 03/31/20 16:53 Zofran 4 Mg/2 Ml Vial IV 03/31/20 16:45 4 mg STAT ONE Administration Ondansetron HCl Confirm 03/31/20 16:49 Zofran 4 Mg/2 Ml Vial Administered 03/31/20 16:50 Dose 4 mg .ROUTE .STK-MED ONE Lab/Rad Data: Laboratory Result Diagrams 03/31/20 16:44 03/31/20 16:30 Laboratory Results 03/31/20 03/31/20 03/31/20 Range/Units 16:44 16:44 16:30 WBC 11.5 H (4.0-10.5) K/mm3 RBC 5.28 (4.1-5.6) M/mm3 Hgb 16.5 (12.5-18.0) gm/dl Hct 48.9 (42-50) % MCV 92.6 (78-100) fl MCH 31.3 (26-32) pg MCHC 33.7 (32-36) g/dl RDW 14.1 H (11.5-14.0) % Plt Count 213 (150-450) K/mm3 MPV 10.6 (7.5-11.0) fl Gran % 75.6 H (36.0-66.0) % Eos # (Auto) 0.21 (0-0.5) Absolute Lymphs (auto) 1.96 (1.0-4.6) Absolute Monos (auto) 0.57 (0.0-1.3) Lymphocytes % 17.1 L (24.0-44.0) % Monocytes % 5.0 (0.0-12.0) % Eosinophils % 1.8 (0.00-5.0) % Basophils % 0.5 (0.0-0.4) % Absolute Granulocytes 8.66 H (1.4-6.9) Basophils # 0.06 (0-0.4) PT 12.3 (8.83-12.87) SECONDS INR 1.09 (0.8-3.0) Sodium 136 L (137-145) mmol/L Potassium 3.8 (3.5-5.1) mmol/L Chloride 103 (98-107) mmol/L Carbon Dioxide 25 (22-30) mmol/L Anion Gap 11.9 (5-15) MEQ/L BUN 12 (9-20) mg/dL Creatinine 0.65 L (0.66-1.25) mg/dL Estimated GFR > 60.0 ML/MIN Glucose 145 H (74-106) mg/dL Calcium 9.5 (8.4-10.2) mg/dL Total Bilirubin 0.40 (0.2-1.3) mg/dL AST 31 (17-59) U/L ALT 40 (0-50) U/L Alkaline Phosphatase 80 (38-126) U/L Serum Total Protein 7.3 (6.3-8.2) g/dL Albumin 4.2 (3.5-5.0) g/dL - Progress Progress: improved, pain not gone completely, re-examined Progress Note: 03/31/20 17:28 X-ray right hand shows a displaced first phalanx comminuted tuft fracture. Additionally, there is a nondisplaced fracture of the base of the distal phalanx, ulnar aspect. Medical decision making: I reviewed this patient's clinical findings as well as x-ray findings with Dr. Blas Aldana, hand surgeon at [facility]. He feels that the patient does have a crush injury with the above-stated open fractures. He states antibiotic and pain control with follow-up in his office on 04/03/2020 at 1 PM. He states that his office is open on that day. He states that the tissue appears viable. I discussed this with the patient and he agrees to follow-up with Dr. Aldana on 04/03/2020. Patient was also instructed to stop his Plavix. He will receive a prescription for pain medication as well as antibiotics. Discussed with Dr.: Other (Dr. Jeremy Aldana hand surgeon at [facility]) Counseled pt/family regarding: lab results, diagnosis, need for follow-up, rad results - Departure Departure Disposition: Home Clinical Impression: Crushing injury of right thumb, initial encounter, Open fracture of right thumb Condition: Stable Critical Care Time: No Referrals: LUIS VALDES [Primary Care Provider] - Additional Instructions: Stop your Plavix. Follow-up with Dr. Aldana at [facility] [address] [facility] [place] [address]. Be there at 1 PM. Phone number is [phone]. Take your pain medicine and antibiotics as prescribed. Keep your pressure dressing in place and keep it dry until after your thumb is evaluated on Friday. If you are having intractable pain or noticed bleeding through the dressing, follow-up at [facility] emergency department. Prescriptions: Oxycodone HCl/Acetaminophen [Percocet 5-325 mg Tablet] 1 each PO Q8H PRN PRN #12 tablet MDD 3 PRN Reason: Pain Cephalexin Mh 500 mg [Keflex 500 mg] 500 mg PO TID #21 capsule
[2020-03-31] MEDS ORDERED: Zofran 4 MG/2 ML VIAL IV ONE (16:44)
[2020-03-31] MEDS ORDERED: KEFZOL 1 GM/50 ML PREMIX** 1 GM/50 ML IVPB IV STA (16:44)
[2020-03-31] MEDS ORDERED: MORPHINE SULFATE 4 MG INJ IV ONE ×2 (16:44→17:25)
[2020-03-31] MEDS ORDERED: MORPHINE SULFATE 4 MG INJ ONE ×2 (16:49→17:27)
[2020-03-31] MEDS ORDERED: Zofran 4 MG/2 ML VIAL ONE (16:49)
[2020-03-31] MEDS ORDERED: KEFZOL 1 GM/50 ML PREMIX** 1 GM/50 ML IVPB IV ONE (16:49)
--- NOTE | 2020-03-31 16:52 | XRAY ---
Indication: Thumb crush injury Comparison: None 3 view right hand demonstrates displaced 1st phalanx comminuted tuft fracture with soft tissue swelling. Additional nondisplaced fracture base distal 1st phalanx ulnar aspect. Incidental tiny metallic soft tissue foreign body involving hypothenar eminence.
[2020-03-31 16:53] LABS: INR 1.09 (0.8-3.0); PROTIME 12.3 SECONDS (8.83-12.87)
[2020-03-31 16:58] LABS: Absolute Neutrophil Ct (ANC) 8.66 (1.4-6.9); BASOPHIL % 0.5 % (0.0-0.4); Basophil (Absolute #) 0.06 (0-0.4); Eosinophil % 1.8 % (0.00-5.0); Eosinophil (Absolute #) 0.21 (0-0.5); Hematocrit 48.9 % (42-50); Hemoglobin 16.5 gm/dl (12.5-18.0); Lymphocyte (Absolute #) 1.96 (1.0-4.6); Lymphocytes % 17.1 % (24.0-44.0); Mean Cell Volume 92.6 fl (78-100); Mean Corpuscular Hemoglobin 31.3 pg (26-32); Mean Corpuscular Hgb Concent. 33.7 g/dl (32-36); Mean Platelet Volume 10.6 fl (7.5-11.0); Monocyte (Absolute #) 0.57 (0.0-1.3); Neutrophil % 75.6 % (36.0-66.0); Platelet Count 213 K/mm3 (150-450); Red Blood Count 5.28 M/mm3 (4.1-5.6); Red Cell Distribution Width 14.1 % (11.5-14.0); White Blood Count 11.5 K/mm3 (4.0-10.5)
[2020-03-31 16:59] LABS: ALBUMIN 4.2 g/dL (3.5-5.0); ALKALINE PHOSPHATASE 80 U/L (38-126); ANION GAP 11.9 MEQ/L (5-15); BLOOD UREA NITROGEN 12 mg/dL (9-20); CHLORIDE 103 mmol/L (98-107); Calcium 9.5 mg/dL (8.4-10.2); Carbon Dioxide 25 mmol/L (22-30); Creatinine 1 0.65 mg/dL (0.66-1.25); EST GLOMERULAR FILTRATION RATE > 60.0 ML/MIN; Glucose 145 mg/dL (74-106); Potassium 3.8 mmol/L (3.5-5.1); SGOT/AST 31 U/L (17-59); SGPT/ALT 40 U/L (0-50); SODIUM 136 mmol/L (137-145); Total Protein 7.3 g/dL (6.3-8.2)
[2020-03-31 17:00] VITALS: O2SAT 96
[2020-03-31] MEDS ORDERED: PERCOCET TABLET 5/325MG PO STA (17:36)
[2020-03-31 17:41] VITALS: BP 139/75; PULSE 60
[2020-03-31] MEDS ORDERED: PERCOCET TABLET 5/325MG ONE (17:42)
== END 2020-03-31 17:52 | disposition home or self-care (01) ==
LOC: ED 16:14
DX: S62.501B Fracture of unspecified phalanx of right thumb, initial encounter for open fracture (principal); M79.644 Pain in right finger(s); W31.89XA Contact with other specified machinery, initial encounter; I10 Essential (primary) hypertension; Z79.01 Long term (current) use of anticoagulants; E78.5 Hyperlipidemia, unspecified; I25.2 Old myocardial infarction; F17.210 Nicotine dependence, cigarettes, uncomplicated
CPT/HCPCS: 36000; 36415; 73130; 80053; 85025; 85610; 96374; 96375; 96376; 99284; J0690; J2270; J2405; A9270-GY

== ENCOUNTER 2020-11-30 17:40 | Emergency (ER) | payer OTHER ==
--- NOTE | 2020-11-30 18:02 | ERPHSYRPT ---
- History of Present Illness Time Seen by Provider: 11/30/20 17:45 Historian: patient Patient Subjective Stated Complaint: CP x 2 weeks that radiates to back Triage Nursing Assessment: pt to ED c/o CP x 2 weeks that radiates to center of back. pt rates 8/10 pain now that intermittently improves and worsens. sees kitchen bath designer in [place] and has had recent hx HTN, pt reports 200/100. heart sounds clear. lungs clear and equal bialterally. Physician History: Patient is a 55-year-old male presents to our ED for evaluation of chest pain. Patient has been experiencing intermittent chest pain for several weeks. Patient had a exercise stress test 2 weeks ago which she reportedly "failed". Patient states she has got 3 cardiac stents. Patient's kitchen bath designer is at [facility] in [place]. Patient states that his symptoms have been getting progressively worse. He now feels the pain more frequently. Pain tends to radiate to his back. Pain rated 8 out of 10. No trauma or fevers. Patient states he is mildly dizzy. No syncope or seizures. No nausea or vomiting. Symptoms are mild to moderate in intensity. Activity worsens symptoms. Patient states activity makes him feel generally weak and fatigued. Patient voices no other complaints or concerns at this time. Patient's kitchen bath designer is [employer]. Timing/Duration: week(s) (2 weeks.) Activities at Onset: activity Quality: aching Location: substernal Chest Pain Radiation: back Severity of Pain-Max: moderate Severity of Pain-Current: mild Modifying Factors: Improves With: nothing Associated Symptoms: fatigue, headache (Patient has been experiencing a mild headache. Patient does not complain of headache at this time.) Prior Chest Pain/Cardiac Workup: cardiac cath Nitro Today/Relief: no nitro taken today Aspirin Treatment Today: no aspirin today Allergies/Adverse Reactions: No Known Drug Allergies Allergy (Verified 11/30/20 17:48) Home Medications: ALPRAZolam 0.5 MG [xanAX 0.5 MG] 0.5 mg PO BID 09/14/12 [History] Nitroglycerin 0.4 mg Tablet [Nitrostat 0.4 MG Tablet] 0.4 mg SL UD [History] Clopidogrel Bisulfate 75 mg [PLAVIX 75 MG Tablet] 75 mg PO DAILY 11/05/13 [History] Ranolazine 500 MG [Ranexa 500 MG] 1,000 mg PO BID 11/21/15 [History] Levetiracetam [Keppra 500 mg ] 500 mg PO BID 10/17/16 [History] Atorvastatin Calcium 40 mg PO DAILY 11/09/18 [History] Albuterol Sulfate [Albuterol Sulfate Hfa] 8.5 gm IH DAILY PRN PRN 11/30/20 [History] Alprazolam [Xanax] 0.5 mg PO DAILY 11/30/20 [History] Amlodipine Besylate 5 mg PO DAILY 11/30/20 [History] Aspirin [Dalton Chewable] 81 mg PO DAILY 11/30/20 [History] Famotidine 20 mg [Pepcid 20 MG] 40 mg PO BID 11/30/20 [History] Isosorbide Mononitrate 60 mg [Imdur 60MG] 60 mg PO DAILY 11/30/20 [History] Lisinopril 10 mg [Zestril 10 MG] 10 mg PO DAILY 11/30/20 [History] Metoprolol Tartrate 50 mg [Lopressor 50 MG] 50 mg PO BID 11/30/20 [History] Sertraline HCl 50 mg [Zoloft 50 mg Tablet] 50 mg PO DAILY 11/30/20 [History] Hx Tetanus, Diphtheria Vaccination/Date Given: Yes (3 yrs ago -2020) Hx Influenza Vaccination/Date Given: Yes Hx Pneumococcal Vaccination/Date Given: Yes Immunizations Up to Date: Yes Travel Risk - International Travel Have you traveled outside of the country in past 3 weeks: No - Coronavirus Screening Are you exhibiting any of the following symptoms?: No Close contact with a COVID-19 positive Pt in past 14-21 Days: No - Vaccine Status Have you recieved a Covid-19 vaccination: No - Review of Systems Constitutional: No Symptoms, No Fever, No Chills Eyes: No Symptoms Ears, Nose, & Throat: No Symptoms Respiratory: No Symptoms, No Cough, No Dyspnea Cardiac: No Symptoms, No Chest Pain, No Edema, No Syncope Abdominal/Gastrointestinal: No Symptoms, No Abdominal Pain, No Nausea, No Vomiting, No Diarrhea Genitourinary Symptoms: No Symptoms, No Dysuria Musculoskeletal: No Symptoms, No Back Pain, No Neck Pain Skin: No Symptoms, No Rash Neurological: No Symptoms, No Dizziness, No Focal Weakness, No Sensory Changes Psychological: No Symptoms Endocrine: No Symptoms Hematologic/Lymphatic: No Symptoms Immunological/Allergic: No Symptoms All Other Systems: Reviewed and Negative - Past Medical History Pertinent Past Medical History: Yes Neurological History: Seizures ENT History: No Pertinent History Cardiac History: Angina, Coronary Artery Disease, High Cholesterol, Hypertension, Myocardial Infarction (ID) Respiratory History: No Pertinent History Endocrine Medical History: No Pertinent History Musculoskeletal History: No Pertinent History GI Medical History: Diverticulitis, Other History: No Pertinent History Psycho-Social History: Anxiety Male Reproductive Disorders: No Pertinent History - Past Surgical History Past Surgical History: Yes Neuro Surgical History: No Pertinent History Cardiac: Cardiac Catheterization, Cardiac Stent Respiratory: No Pertinent History Gastrointestinal: Cholecystectomy, Colon Resection Genitourinary: No Pertinent History Musculoskeletal: Orthopedic Surgery Male Surgical History: No Pertinent History Other Surgical History: pins in left arm, left knee surgery torn tendon repair, back surgery x2 lower back deterioration, posterior neck "cage and screws around it"colon resection r/t diverticuli,ostomy placed and. ostomy reversal - Social History Smoking Status: Current every day smoker How long have you smoked: 30 YEARS Exposure to second hand smoke: Yes Alcohol Use: Socially Drug Use: none Patient Lives Alone: Yes Significant Family History: heart disease, hypertension - Nursing Vital Signs Nursing Vital Signs: Initial Vital Signs Temperature 98.6 F 11/30/20 17:40 Pulse Rate 69 11/30/20 17:40 Respiratory Rate 12 11/30/20 17:40 Blood Pressure 164/91 11/30/20 17:40 O2 Sat by Pulse Oximetry 98 11/30/20 17:40 Pain Scale Pain Intensity 6 - Physical Exam General Appearance: no apparent distress, alert Eye Exam: PERRL/EOMI, eyes nml inspection Ears, Nose, Throat Exam: normal ENT inspection, moist mucous membranes Neck Exam: normal inspection, non-tender, supple, full range of motion Respiratory Exam: normal breath sounds, lungs clear, No respiratory distress Cardiovascular Exam: regular rate/rhythm, normal heart sounds Gastrointestinal/Abdomen Exam: soft, No tenderness, No mass Back Exam: normal inspection, No CVA tenderness, No vertebral tenderness Extremity Exam: normal inspection, normal range of motion Neurologic Exam: alert, oriented x 3, cooperative, normal mood/affect, sensation nml, No motor deficits Skin Exam: normal color, warm, dry SpO2: 98 - Course Nursing assessment & vital signs reviewed: Yes EKG Interpreted by Me: RATE (71), Sinus Rhythm, NORMAL AXIS, NORMAL INTERVALS - Radiology Exams Chest X-ray Interpretation: Interpreted by me (Lungs are clear. Normal cardiac silhouette. Intact bony thorax. Anterior chest wall with punctate foreign body unchanged from previous.) Ordered Tests: Active Orders 24 hr Category Date Time Status Interactive Art Director STAT Care 11/30/20 17:59 Completed EKG-ER Only STAT Care 11/30/20 17:58 Completed IV Insertion STAT Care 11/30/20 17:58 Completed Pulse Oximetry (ED) STAT Care 11/30/20 17:58 Completed CHEST 1 VIEW (PORTABLE) Stat Exams 11/30/20 17:59 Taken CBC W DIFF Stat Lab 11/30/20 17:55 Completed CMP Stat Lab 11/30/20 17:55 Completed PROTIME WITH INR Stat Lab 11/30/20 19:20 Completed PTT Stat Lab 11/30/20 19:20 Completed TROPONIN Q3H Lab 11/30/20 17:55 Completed Medication Summary Discontinued Medications Generic Name Dose Route Start Last Admin Trade Name Freq PRN Reason Stop Dose Admin Aspirin 324 mg 11/30/20 19:16 11/30/20 19:24 Aspirin 81 Mg Tab.Chew PO 11/30/20 19:17 324 mg STAT ONE Administration Aspirin Confirm 11/30/20 19:23 Aspirin 81 Mg Tab.Chew Administered 11/30/20 19:24 Dose 324 mg .ROUTE .STK-MED ONE Heparin Sodium (Beef Lung) 5,000 unit 11/30/20 19:46 11/30/20 19:47 Heparin 5000 Unit/0.5 Ml Syringe IV 11/30/20 19:47 5,000 unit STAT ONE Administration Heparin Sodium (Beef Lung) Confirm 11/30/20 19:45 Heparin 5000 Unit/0.5 Ml Syringe Administered 11/30/20 19:46 Dose 5,000 unit .ROUTE .STK-MED ONE Nitroglycerin/Dextrose 250 mls @ 1.5 mls/hr 11/30/20 19:39 11/30/20 19:56 Ntg 0.2mg/Ml In D5w Glass IV 12/30/20 19:38 5 mcg/min .Q24H PRN 1.5 mls/hr CHEST PAIN Administration Protocol 5 MCG/MIN Heparin Sodium/Dextrose Confirm 11/30/20 19:45 Heparin 25,000 Units/D5w 250ml Premix Administered 11/30/20 19:46 Dose 25,000 units in 250 mls @ ud IV .STK-MED ONE Heparin Sodium/Dextrose 25,000 units in 250 mls @ 10 mls/hr 11/30/20 20:00 11/30/20 19:50 Heparin 25,000 Units/D5w 250ml Premix IV 12/30/20 19:59 10 mls/hr .Q24H MANSI 10 mls/hr Administration Nitroglycerin/Dextrose Confirm 11/30/20 19:55 Ntg 0.2mg/Ml In D5w Glass Administered 11/30/20 19:56 Dose 250 mls @ ud IV .STK-MED ONE Morphine Sulfate 4 mg 11/30/20 19:30 11/30/20 19:38 Morphine Sulfate 4 Mg/Ml Injection IV 11/30/20 19:31 4 mg STAT ONE Administration Morphine Sulfate Confirm 11/30/20 19:33 Morphine Sulfate 4 Mg/Ml Injection Administered 11/30/20 19:34 Dose 4 mg .ROUTE .STK-MED ONE Lab/Rad Data: Laboratory Result Diagrams 11/30/20 17:55 11/30/20 17:55 Laboratory Results 11/30/20 11/30/20 11/30/20 Range/Units 19:20 17:55 17:55 WBC (4.0-10.5) K/mm3 RBC (4.1-5.6) M/mm3 Hgb (12.5-18.0) gm/dl Hct (42-50) % MCV (78-100) fl MCH (26-32) pg MCHC (32-36) g/dl RDW (11.5-14.0) % Plt Count (150-450) K/mm3 MPV (7.5-11.0) fl Gran % (36.0-66.0) % Eos # (Auto) (0-0.5) Absolute Lymphs (auto) (1.0-4.6) Absolute Monos (auto) (0.0-1.3) Lymphocytes % (24.0-44.0) % Monocytes % (0.0-12.0) % Eosinophils % (0.00-5.0) % Basophils % (0.0-0.4) % Absolute Granulocytes (1.4-6.9) Basophils # (0-0.4) PT 12.8 H (9.4-12.5) SECONDS INR 1.08 (0.8-3.0) APTT 33.8 (25.1-36.5) SECONDS Sodium 137 (137-145) mmol/L Potassium 4.0 (3.5-5.1) mmol/L Chloride 101 (98-107) mmol/L Carbon Dioxide 24 (22-30) mmol/L Anion Gap 15.8 H (5-15) MEQ/L BUN 15 (9-20) mg/dL Creatinine 0.73 (0.66-1.25) mg/dL Estimated GFR > 60.0 ML/MIN Glucose 86 (74-106) mg/dL Calcium 9.5 (8.4-10.2) mg/dL Total Bilirubin 1.30 (0.2-1.3) mg/dL AST 35 (17-59) U/L ALT 42 (0-50) U/L Alkaline Phosphatase 79 (38-126) U/L Troponin I 0.047 H* (0.000-0.034) ng/mL Serum Total Protein 7.7 (6.3-8.2) g/dL Albumin 4.6 (3.5-5.0) g/dL 11/30/20 Range/Units 17:55 WBC 11.8 H (4.0-10.5) K/mm3 RBC 5.32 (4.1-5.6) M/mm3 Hgb 17.3 (12.5-18.0) gm/dl Hct 49.8 (42-50) % MCV 93.6 (78-100) fl MCH 32.5 H (26-32) pg MCHC 34.7 (32-36) g/dl RDW 14.3 H (11.5-14.0) % Plt Count 199 (150-450) K/mm3 MPV 9.9 (7.5-11.0) fl Gran % 69.5 H (36.0-66.0) % Eos # (Auto) 0.17 (0-0.5) Absolute Lymphs (auto) 2.65 (1.0-4.6) Absolute Monos (auto) 0.74 (0.0-1.3) Lymphocytes % 22.5 L (24.0-44.0) % Monocytes % 6.3 (0.0-12.0) % Eosinophils % 1.4 (0.00-5.0) % Basophils % 0.3 (0.0-0.4) % Absolute Granulocytes 8.19 H (1.4-6.9) Basophils # 0.04 (0-0.4) PT (9.4-12.5) SECONDS INR (0.8-3.0) APTT (25.1-36.5) SECONDS Sodium (137-145) mmol/L Potassium (3.5-5.1) mmol/L Chloride (98-107) mmol/L Carbon Dioxide (22-30) mmol/L Anion Gap (5-15) MEQ/L BUN (9-20) mg/dL Creatinine (0.66-1.25) mg/dL Estimated GFR ML/MIN Glucose (74-106) mg/dL Calcium (8.4-10.2) mg/dL Total Bilirubin (0.2-1.3) mg/dL AST (17-59) U/L ALT (0-50) U/L Alkaline Phosphatase (38-126) U/L Troponin I (0.000-0.034) ng/mL Serum Total Protein (6.3-8.2) g/dL Albumin (3.5-5.0) g/dL - Progress Progress: improved Air Movement: good Progress Note: 11/30/20 19:[address] Montano who accepts transfer. Plan of care discussed with patient. He agrees to transfer to [facility] for further evaluation and treatment. Heparin drip ordered. Nitroglycerin drip will be administered. Patient received 4 baby aspirin. Morphine ordered due to ongoing chest pain. EKG does not reveal a STEMI. No obvious acute ischemic changes observed. Plan of care discussed with patient. He agrees to transfer to [facility] for further evaluation and treatment. 11/30/20 20:36 Blood Culture(s) Obtained: No Antibiotics given: No Counseled pt/family regarding: lab results, diagnosis, rad results - Departure Departure Disposition: Transfer Clinical Impression: ACS (acute coronary syndrome), Elevated troponin, NSTEMI (non-ST elevated myocardial infarction) Condition: Stable Critical Care Time: No Referrals: LUIS JONES [Primary Care Provider] -
[2020-11-30 18:19] LABS: Absolute Neutrophil Ct (ANC) 8.19 (1.4-6.9); BASOPHIL % 0.3 % (0.0-0.4); Basophil (Absolute #) 0.04 (0-0.4); Eosinophil % 1.4 % (0.00-5.0); Eosinophil (Absolute #) 0.17 (0-0.5); Hematocrit 49.8 % (42-50); Hemoglobin 17.3 gm/dl (12.5-18.0); Lymphocyte (Absolute #) 2.65 (1.0-4.6); Lymphocytes % 22.5 % (24.0-44.0); Mean Cell Volume 93.6 fl (78-100); Mean Corpuscular Hemoglobin 32.5 pg (26-32); Mean Corpuscular Hgb Concent. 34.7 g/dl (32-36); Mean Platelet Volume 9.9 fl (7.5-11.0); Monocyte (Absolute #) 0.74 (0.0-1.3); Monocytes % 6.3 % (0.0-12.0); Neutrophil % 69.5 % (36.0-66.0); Platelet Count 199 K/mm3 (150-450); Red Blood Count 5.32 M/mm3 (4.1-5.6); Red Cell Distribution Width 14.3 % (11.5-14.0); White Blood Count 11.8 K/mm3 (4.0-10.5)
[2020-11-30 18:32] LABS: ALBUMIN 4.6 g/dL (3.5-5.0); ALKALINE PHOSPHATASE 79 U/L (38-126); ANION GAP 15.8 MEQ/L (5-15); BLOOD UREA NITROGEN 15 mg/dL (9-20); CHLORIDE 101 mmol/L (98-107); Calcium 9.5 mg/dL (8.4-10.2); Carbon Dioxide 24 mmol/L (22-30); Creatinine 1 0.73 mg/dL (0.66-1.25); EST GLOMERULAR FILTRATION RATE > 60.0 ML/MIN; Glucose 86 mg/dL (74-106); SGOT/AST 35 U/L (17-59); SGPT/ALT 42 U/L (0-50); SODIUM 137 mmol/L (137-145); Total Protein 7.7 g/dL (6.3-8.2)
[2020-11-30 19:15] VITALS: O2SAT 98
[2020-11-30] MEDS ORDERED: BABY ASPIRIN 81 MG CHEW PO ONE (19:16)
[2020-11-30] MEDS ORDERED: BABY ASPIRIN 81 MG CHEW ONE (19:23)
[2020-11-30] MEDS ORDERED: MORPHINE SULFATE 4 MG INJ IV ONE (19:30)
[2020-11-30 19:32] LABS: INR 1.08 (0.8-3.0); PROTIME 12.8 SECONDS (9.4-12.5)
[2020-11-30] MEDS ORDERED: MORPHINE SULFATE 4 MG INJ ONE (19:33)
[2020-11-30 19:35] LABS: PTT 33.8 SECONDS (25.1-36.5)
[2020-11-30] MEDS ORDERED: Ntg 0.2MG/Ml in D5W GLASS*** 250 ML IV PRN (19:39)
[2020-11-30] MEDS ORDERED: Heparin 5000 UNITS/0.5 ML (HIGH RISK MED) ONE (19:45)
[2020-11-30] MEDS ORDERED: Heparin 25,000 units/D5W 250ML PREMIX 25,000 UNITS/250 ML BAG IV ONE (19:45)
[2020-11-30] MEDS ORDERED: Heparin 5000 UNITS/0.5 ML (HIGH RISK MED) IV ONE (19:46)
[2020-11-30] MEDS ORDERED: Ntg 0.2MG/Ml in D5W GLASS*** 250 ML IV ONE (19:55)
[2020-11-30] MEDS ORDERED: Heparin 25,000 units/D5W 250ML PREMIX 25,000 UNITS/250 ML BAG IV SCH (20:00)
[2020-11-30 20:24] VITALS: BP 136/81; PULSE 62
--- NOTE | 2020-12-01 08:42 | XRAY ---
Indication: Chest pain 2 weeks. Comparison: November 03, 2018. Portable chest remains hyperinflated and clear again with incidental punctate foreign body projecting over left lung base. Heart not enlarged. Bony thorax intact again with mild degenerative changes. Partially visualized lower cervical fusion hardware. Impression: Nonacute chest with chronic features.
== END 2020-11-30 20:24 | disposition short-term general hospital (02) ==
LOC: ED 17:40
DX: I24.9 Acute ischemic heart disease, unspecified (principal); R79.89 Other specified abnormal findings of blood chemistry; I21.4 Non-ST elevation (NSTEMI) myocardial infarction; I10 Essential (primary) hypertension; Z79.899 Other long term (current) drug therapy; E78.00 Pure hypercholesterolemia, unspecified
CPT/HCPCS: 36000; 36415; 71045; 80053; 84484; 85025; 85610; 85730; 93005; 93041; 94760; 96374; 96375; 99285; J1644; J2270; A9270-GY